=== PATIENT | male | born 1980 | race African-American/Black ===

== ENCOUNTER 2018-02-14 11:33 | Inpatient (IN) | payer SELFPAY ==
[~2018-02-14] VITALS: Ht 182.9 cm; Wt 86.2 kg
[2018-02-14] MEDS ORDERED: SODIUM CHLORIDE 0.9% 1,000 ML IV ONE (11:49)
[2018-02-14] MEDS ORDERED: SODIUM CHLORIDE 0.9% 1000ML BAG (SEPSIS BOLUS) IV ONE (12:15)
[2018-02-14] MEDS ORDERED: INSULIN REGULAR (HUMULIN R) UD 100 UNITS/ML SYR SUBCUT ONE (12:15)
[2018-02-14] MEDS ORDERED: INSULIN REGULAR (HUMULIN R) 300UNITS/3ML SUBCUT ONE (12:30)
[2018-02-14 12:43] LABS: BASOPHILS % 0.4 % (0.0-2.0); HEMATOCRIT. 55.5 % (42.0-52.0); HEMOGLOBIN. 17.2 g/dL (14.0-18.0); LYMPHOCYTES % 7.5 % (20.0-50.0); MEAN CORPUSCULAR HEMOGLOBIN 30.6 pg (28.0-32.0); MEAN CORPUSCULAR VOLUME 98.8 fL (80.0-94.0); MONOCYTES % 8.3 % (2.0-8.0); NEUTROPHILS % 83.8 % (40.0-76.0); PLATELET 234 x1000/uL (130-400); RED BLOOD CELL COUNT 5.62 mill/uL (4.7-6.1); RED CELL DISTRIBUTION WIDTH 15.1 % (11.6-14.6)
[2018-02-14 12:50] LABS: PARTIAL THROMBOPLASTIN TIME 24.5 sec (23.4-31.0); PROTHROMBIN TIME 10.1 sec (9.1-11.1)
[2018-02-14 12:54] LABS: CLARITY URINE CLEAR (CLEAR); COLOR URINE YELLOW (YELLOW); KETONES URINE 2+ (NEGATIVE); LEUKOCYTE ESTERASE URINE NEGATIVE (NEGATIVE); NITRITE URINE NEGATIVE (NEGATIVE); OCCULT BLOOD URINE TRACE (NEGATIVE); PROTEIN URINE 1+ (NEGATIVE); SPECIFIC GRAVITY URINE 1.032 (1.005-1.030); UROBILINOGEN URINE 0.2 E.U./dL (0.2-1.0)
[2018-02-14 12:54] LABS: CHLORIDE 89 mEq/L (98-107)
[2018-02-14] MEDS ORDERED: SODIUM CHLORIDE 0.9% 1,000 ML IV STA (13:09)
[2018-02-14] MEDS ORDERED: INSULIN REGULAR (DRIP) 100 UNITS in SODIUM CHLORIDE 0.9% 100 ML IV ONE (13:09)
[2018-02-14 13:13] LABS: BG BASE EXCESS -19.9 mmol/L (-2.0-2.0); BG CARBOXYHEMOGLOBIN 0.6 % (0.5-1.5); BG DEOXYHEMOGLOBIN 2.1 % (0.0-5.0); BG FRACTION INSPIRED OXYGEN 21; BG HCO3 ACT 6.6 mmol/L (22.0-26.0); BG METHEMOGLOBIN 0.6 % (0.0-1.5); BG OXYGEN SATURATION 97.9 % (92.0-98.5); BG OXYHEMOGLOBIN 96.7 % (94.0-97.0); BG PCO2 19.4 mmHg (35.0-45.0); BG PH 7.152 (7.350-7.450); BG PO2 129.9 mmHg (75.0-100.0); BG SAMPLE SITE RIGHT RADIAL; BG TOTAL HEMOGLOBIN 17.1 g/dL (12.0-18.0); BG VENT MODE ROOM AIR
[2018-02-14] MEDS ORDERED: SODIUM CHLORIDE 0.9% IV ONE (13:30)
[2018-02-14] MEDS ORDERED: INSULIN REGULAR IV ONE (13:30)
[2018-02-14 13:32] LABS: BETA HYDROXYBUTYRATE 13.7 mMol/L (0.0-0.3)
[2018-02-14] MEDS ORDERED: ACETAMINOPHEN 325MG TABLET PO PRN (13:45)
[2018-02-14] MEDS ORDERED: INSULIN REGULAR (DRIP) 100 UNITS in SODIUM CHLORIDE 0.9% 100 ML IV SCH ×2 (13:45→22:30)
[2018-02-14] MEDS ORDERED: ONDANSETRON HCL 4MG/2ML VIAL IV PRN (13:45)
[2018-02-14] MEDS ORDERED: DOCUSATE SODIUM 100MG CAPSULE PO PRN (13:45)
[2018-02-14] MEDS ORDERED: IPRATROPIUM/ALBUTEROL 0.5-3(2.5)MG/3ML NEB INH PRN (13:45)
[2018-02-14] MEDS ORDERED: GUAIFENESIN 200MG/10ML SUGAR FREE UDC PO PRN (13:45)
[2018-02-14] MEDS ORDERED: CLONIDINE 0.1MG TABLET PO PRN (13:45)
[2018-02-14] MEDS ORDERED: MAGNESIUM/ALUMINUM HYDROXIDE/SIMETHICONE 30ML UDC PO PRN (13:45)
[2018-02-14] MEDS ORDERED: NA PHOS,M-B/NA PHOS,DI-BA ENEMA 118ML PR PRN (13:45)
[2018-02-14] MEDS ORDERED: HYDROCODONE/ACETAMINOPHEN 5/325MG TABLET PO PRN (13:45)
[2018-02-14] MEDS ORDERED: DIPHENHYDRAMINE 50MG/ML VIAL IV PRN (13:45)
[2018-02-14] MEDS ORDERED: MORPHINE SULFATE 4 MG/ML CPJ (NOT FOR IM USE) IV PRN (13:45)
[2018-02-14] MEDS ORDERED: LORAZEPAM 2MG/ML CPJ IV PRN (13:45)
[2018-02-14 17:14] LABS: PHOSPHORUS 4.9 mg/dL (2.5-4.9)
[2018-02-14 20:00] VITALS: BP 104/66
[2018-02-14 21:00] VITALS: BP 104/51
[2018-02-14] MEDS: SODIUM CHLORIDE 0.45% 1,000 ML IV SCH (21:30)
[2018-02-14] MEDS ORDERED: DEXTROSE 50% WATER 50ML SYRINGE IV PRN ×2 (22:45)
[2018-02-14 23:00] VITALS: BP 95/51
[2018-02-14] MEDS: BLOOD SUGAR DIAGNOSTIC STRIP TEST SCH (23:45)
[2018-02-15] VITALS (25 sets, daily range): BP systolic 100–155; BP diastolic 49–90
[2018-02-15] MEDS: BLOOD SUGAR DIAGNOSTIC STRIP TEST SCH ×16 (00:45→21:00)
[2018-02-15 01:14] LABS: CHLORIDE 120 mEq/L (98-107)
[2018-02-15 01:29] LABS: PHOSPHORUS 0.7 mg/dL (2.5-4.9)
[2018-02-15 01:58] LABS: BG BASE EXCESS -8.3 mmol/L (-2.0-2.0); BG CARBOXYHEMOGLOBIN 0.3 % (0.5-1.5); BG DEOXYHEMOGLOBIN 2.3 % (0.0-5.0); BG FRACTION INSPIRED OXYGEN 21; BG METHEMOGLOBIN 0.3 % (0.0-1.5); BG OXYGEN SATURATION 97.7 % (92.0-98.5); BG OXYHEMOGLOBIN 97.1 % (94.0-97.0); BG PCO2 23.3 mmHg (35.0-45.0); BG PH 7.396 (7.350-7.450); BG PO2 104.9 mmHg (75.0-100.0); BG SAMPLE SITE RIGHT RADIAL; BG TOTAL HEMOGLOBIN 17.6 g/dL (12.0-18.0); BG VENT MODE ROOM AIR
[2018-02-15] MEDS: SODIUM CHLORIDE 0.45% 1,000 ML IV SCH ×2 (04:10→12:47)
[2018-02-15 06:08] LABS: BASOPHILS % 0.4 % (0.0-2.0); HEMATOCRIT. 53.6 % (42.0-52.0); LYMPHOCYTES % 9.9 % (20.0-50.0); MEAN CORPUSCULAR VOLUME 89.2 fL (80.0-94.0); MEAN PLATELET VOLUME 10.1 fl (7.4-10.4); MONOCYTES % 8.6 % (2.0-8.0); NEUTROPHILS % 81.1 % (40.0-76.0); PLATELET 161 x1000/uL (130-400); RED BLOOD CELL COUNT 6.01 mill/uL (4.7-6.1); RED CELL DISTRIBUTION WIDTH 14.1 % (11.6-14.6)
[2018-02-15 06:19] LABS: CHLORIDE 122 mEq/L (98-107)
[2018-02-15 08:44] LABS: BG BASE EXCESS -8.1 mmol/L (-2.0-2.0); BG CARBOXYHEMOGLOBIN 0.9 % (0.5-1.5); BG DEOXYHEMOGLOBIN 3.7 % (0.0-5.0); BG FRACTION INSPIRED OXYGEN 21; BG HCO3 ACT 16.8 mmol/L (22.0-26.0); BG METHEMOGLOBIN 0.5 % (0.0-1.5); BG OXYGEN SATURATION 96.2 % (92.0-98.5); BG OXYHEMOGLOBIN 94.9 % (94.0-97.0); BG PCO2 33.5 mmHg (35.0-45.0); BG PH 7.318 (7.350-7.450); BG PO2 80.1 mmHg (75.0-100.0); BG SAMPLE SITE RIGHT RADIAL; BG TOTAL HEMOGLOBIN 17.7 g/dL (12.0-18.0); BG VENT MODE ROOM AIR
[2018-02-15] MEDS: ASPIRIN 81MG EC TABLET PO SCH (09:00)
[2018-02-15] MEDS: ENOXAPARIN 40MG/0.4ML SYR SUBCUT SCH (09:37)
[2018-02-15 13:57] LABS: CHLORIDE 124 mEq/L (98-107)
[2018-02-15 14:04] LABS: LDL CHOLESTEROL 213 mg/dL (5-100)
[2018-02-15 14:05] LABS: HDL CHOLESTEROL 61 mg/dL (40-59)
[2018-02-15 14:06] LABS: T4 FREE 0.79 ng/dL (0.76-1.46)
[2018-02-15 14:10] LABS: BETA HYDROXYBUTYRATE 4.7 mMol/L (0.0-0.3)
[2018-02-15 14:44] LABS: BG BASE EXCESS -2.8 mmol/L (-2.0-2.0); BG CARBOXYHEMOGLOBIN 0.2 % (0.5-1.5); BG DEOXYHEMOGLOBIN 1.9 % (0.0-5.0); BG FRACTION INSPIRED OXYGEN 21; BG HCO3 ACT 20.3 mmol/L (22.0-26.0); BG METHEMOGLOBIN 0.2 % (0.0-1.5); BG OXYGEN SATURATION 98.1 % (92.0-98.5); BG OXYHEMOGLOBIN 97.7 % (94.0-97.0); BG PCO2 31.5 mmHg (35.0-45.0); BG PH 7.427 (7.350-7.450); BG PO2 110.2 mmHg (75.0-100.0); BG SAMPLE SITE RIGHT RADIAL; BG VENT MODE ROOM AIR
[2018-02-15] MEDS ORDERED: DEXTROSE 50% WATER 50ML SYRINGE IV PRN (16:15)
[2018-02-15] MEDS: INSULIN LISPRO 100 UNITS/ML SUBCUT SCH ×2 (17:00→20:44)
[2018-02-15] MEDS: POTASSIUM CHLORIDE INJ 10 MEQ in SODIUM CHLORIDE 0.45% 1,000 ML IV SCH ×2 (17:22→23:57)
[2018-02-15] MEDS: INSULIN GLARGINE UD 100 UNITS/ML SYR SUBCUT SCH (17:23)
[2018-02-15] MEDS ORDERED: LIDOCAINE HCL/PF 1% 2ML VIAL ONE (18:26)
[2018-02-16] VITALS (23 sets, daily range): BP systolic 113–136; BP diastolic 61–82
[2018-02-16] MEDS: BLOOD SUGAR DIAGNOSTIC STRIP TEST SCH ×4 (05:57→20:43)
[2018-02-16] MEDS: INSULIN LISPRO 100 UNITS/ML SUBCUT SCH ×4 (06:16→20:43)
[2018-02-16] MEDS: POTASSIUM CHLORIDE INJ 10 MEQ in SODIUM CHLORIDE 0.45% 1,000 ML IV SCH ×3 (06:17→20:43)
[2018-02-16] MEDS: ENOXAPARIN 40MG/0.4ML SYR SUBCUT SCH (09:00)
[2018-02-16] MEDS: ASPIRIN 81MG EC TABLET PO SCH (09:00)
[2018-02-16 16:17] LABS: BASOPHILS % 0.6 % (0.0-2.0); EOSINOPHILS % 0.1 % (0.0-5.0); HEMATOCRIT. 43.2 % (42.0-52.0); HEMOGLOBIN. 14.5 g/dL (14.0-18.0); LYMPHOCYTES % 21.5 % (20.0-50.0); MEAN CORPUSCULAR VOLUME 89.4 fL (80.0-94.0); MONOCYTES % 6.8 % (2.0-8.0); PLATELET 137 x1000/uL (130-400); RED BLOOD CELL COUNT 4.84 mill/uL (4.7-6.1); RED CELL DISTRIBUTION WIDTH 13.6 % (11.6-14.6)
[2018-02-16 16:25] LABS: CHLORIDE 113 mEq/L (98-107)
[2018-02-16] MEDS: INSULIN GLARGINE UD 100 UNITS/ML SYR SUBCUT SCH (22:21)
[2018-02-17] VITALS (16 sets, daily range): BP systolic 111–144; BP diastolic 54–78
[2018-02-17] MEDS: POTASSIUM CHLORIDE INJ 10 MEQ in SODIUM CHLORIDE 0.45% 1,000 ML IV SCH ×3 (03:17→15:54)
[2018-02-17 05:35] LABS: BASOPHILS % 0.5 % (0.0-2.0); EOSINOPHILS % 0.6 % (0.0-5.0); HEMOGLOBIN. 13.2 g/dL (14.0-18.0); LYMPHOCYTES % 35.2 % (20.0-50.0); MEAN CORPUSCULAR HEMOGLOBIN 29.9 pg (28.0-32.0); MEAN CORPUSCULAR VOLUME 86.4 fL (80.0-94.0); MEAN PLATELET VOLUME 8.7 fl (7.4-10.4); MONOCYTES % 5.1 % (2.0-8.0); NEUTROPHILS % 58.6 % (40.0-76.0); PLATELET 114 x1000/uL (130-400); RED CELL DISTRIBUTION WIDTH 13.5 % (11.6-14.6)
[2018-02-17 05:56] LABS: CHLORIDE 109 mEq/L (98-107)
[2018-02-17] MEDS: BLOOD SUGAR DIAGNOSTIC STRIP TEST SCH ×4 (06:29→20:24)
[2018-02-17] MEDS: INSULIN LISPRO 100 UNITS/ML SUBCUT SCH ×4 (06:31→21:05)
[2018-02-17] MEDS: ASPIRIN 81MG EC TABLET PO SCH (08:29)
[2018-02-17] MEDS: ENOXAPARIN 40MG/0.4ML SYR SUBCUT SCH (08:29)
[2018-02-17] MEDS ORDERED: POTASSIUM CHLORIDE 20MEQ/PACKET PO SCH (09:30)
[2018-02-17] MEDS: INSULIN GLARGINE UD 100 UNITS/ML SYR SUBCUT SCH (21:04)
== END 2018-02-17 21:50 | disposition home or self-care (01) | DRG 469 ==
LOC: ER 11:33 → MICUNO 13:33 → EDBEDREQ 13:38 → EDBEDREQTM 13:38 → ENRESERV 18:57 → 8WST 02-17 10:49
PROVIDERS: ADMIT Internal Medicine; ATTEND Internal Medicine
DX: N17.0 Acute kidney failure with tubular necrosis (principal); E11.10 Type 2 diabetes mellitus with ketoacidosis without coma; E87.0 Hyperosmolality and hypernatremia; E87.2 Acidosis; D64.9 Anemia, unspecified; Z83.3 Family history of diabetes mellitus; E86.0 Dehydration; F17.200 Nicotine dependence, unspecified, uncomplicated
CPT/HCPCS: 36415; 36600; 71045; 80048; 80051; 80053; 80061; 81003; 82010; 82375; 82805; 82947; 82962; 83735; 84100; 84439; 84443; 84484; 85025; 85610; 85730; 93005; 93306; 96361; 96365; 96366; 96372; 99291; J1650; J1815; J3480; J3490; J7030; J7050